=== PATIENT | female | born 1955 | race Caucasian/White ===

== ENCOUNTER → 2023-09-22 | Day surgery (SDC) | payer MEDICARE ==
[~2023-09-22] MED LIST: Brimonidine 0.2% Ophth Soln 5 ML Bottle EYELF ONE; Lactated Ringers 1,000 ML IV SCH; Lidocaine 1% 5 ML VIAL IARTIC ONE; MOXIFLOXACIN PF in BSS 1 MG/ML VIAL ICORN ONE; Midazolam 1 MG/ML 2 ML SDV ONE; Moxifloxacin 0.5% Ophth Soln 3 ML Bottle EYELF ONE; Povidone-Iodine 5% Sterile Ophth Soln 30 ML Bottle EYELF ONE; Tetracaine HCl/PF 0.5% 4 ML Bottle EYELF ONE; acetaZOLAMIDE 500 MG Cap.ER PO ONE; fentaNYL 50 MCG/ML SDV ONE
[2023-09-22] MEDS: Cyclopentolat/Tropic/Phenyleph 1 ML Ophth Drop SDV EYELF ONE ×2 (08:51→09:10)
[2023-09-22 13:03] VITALS: BP 107/57; PULSE 74
== END ==
LOC: CC.SDS 07:52
PROVIDERS: ATTEND Ophthalmology
DX: H25.813 Combined forms of age-related cataract, bilateral (principal); I10 Essential (primary) hypertension; K21.9 Gastro-esophageal reflux disease without esophagitis; G47.33 Obstructive sleep apnea (adult) (pediatric); E78.5 Hyperlipidemia, unspecified; D64.9 Anemia, unspecified; K57.30 Diverticulosis of large intestine without perforation or abscess without bleeding; R51.9 Headache, unspecified; Z79.899 Other long term (current) drug therapy; Z87.891 Personal history of nicotine dependence
CPT/HCPCS: A9270-GY; J2250; J3010; J3490; J7120

== ENCOUNTER 2023-11-04 06:40 | Day surgery (SDC) | payer MEDICARE ==
[2023-11-04] MEDS: Lactated Ringers 1,000 ML IV SCH (07:05)
[2023-11-04] MEDS: Cyclopentolat/Tropic/Phenyleph 1 ML Ophth Drop SDV EYERT SCH (07:05)
[2023-11-04] MEDS ORDERED: fentaNYL 50 MCG/ML SDV ONE (07:38)
[2023-11-04] MEDS ORDERED: Midazolam 1 MG/ML 2 ML SDV ONE (07:38)
[2023-11-04] MEDS: Brimonidine 0.2% Ophth Soln 5 ML Bottle EYERT ONE (07:40)
[2023-11-04] MEDS: Lidocaine 1% 5 ML VIAL INJECT ONE (07:40)
[2023-11-04] MEDS: Povidone-Iodine 5% Sterile Ophth Soln 30 ML Bottle EYERT ONE (07:40)
[2023-11-04] MEDS: Tetracaine HCl/PF 0.5% 4 ML Bottle EYERT ONE (07:40)
[2023-11-04] MEDS: acetaZOLAMIDE 500 MG Cap.ER PO ONE (08:32)
[2023-11-04 09:50] VITALS: BP 121/70; PULSE 79
== END 2023-11-04 09:20 | disposition home or self-care (01) ==
LOC: CC.SDS 06:40
PROVIDERS: ATTEND Ophthalmology
DX: H25.811 Combined forms of age-related cataract, right eye (principal); I10 Essential (primary) hypertension; K21.9 Gastro-esophageal reflux disease without esophagitis; E78.5 Hyperlipidemia, unspecified; G47.33 Obstructive sleep apnea (adult) (pediatric); F32.A Depression, unspecified; Z86.16 Personal history of COVID-19; Z87.891 Personal history of nicotine dependence; Z79.899 Other long term (current) drug therapy
CPT/HCPCS: A9270-GY; J2250; J3010; J3490; J7120